=== PATIENT | male | born 1985 | race Caucasian/White ===

== ENCOUNTER 2017-06-03 21:33 | Emergency (ER) | payer SELFPAY ==
[~2017-06-03] VITALS: Ht 180.3 cm; Wt 95.9 kg
[~2017-06-03 21:33] MED LIST: BACTRIM DS1 TAB OR; CIPRO500 MG OR; LEVAQUIN500 MG OR; LORTAB 5 OR; NAPROSYN500 MG OR; NO HOME MEDS; NO MEDS; TYLENOL500 MG OR; ULTRAM50 MG OR
[2017-06-03 21:48] VITALS: BP 118/73
== END 2017-06-03 21:44 | disposition left against medical advice (07) | DRG 951 ==
LOC: ED 21:33 → LWOBS 21:44
DX: Z91.19 Patient's noncompliance with other medical treatment and regimen (principal)

== ENCOUNTER 2018-07-20 17:01 | Emergency (ER) | payer SELFPAY ==
[~2018-07-20] VITALS: Ht 180.3 cm; Wt 110.0 kg
[2018-07-20] MEDS ORDERED: KEFLEX500 M1 PO (17:49)
[2018-07-20] MEDS ORDERED: TORADOL PO (17:49)
[2018-07-20] MEDS ORDERED: PERCOCET1 TA2 PO (17:49)
[2018-07-20 17:54] VITALS: BP 130/77
== END 2018-07-20 17:55 | disposition home or self-care (01) | DRG 605 ==
LOC: ED 17:01
PROC: 0HQBXZZ Repair Right Upper Arm Skin, External Approach (ICD-10-PCS; principal; 2018-07-20)
DX: S41.111A Laceration without foreign body of right upper arm, initial encounter (principal); F17.200 Nicotine dependence, unspecified, uncomplicated; W01.118A Fall on same level from slipping, tripping and stumbling with subsequent striking against other sharp object, initial encounter; Y92.009 Unspecified place in unspecified non-institutional (private) residence as the place of occurrence of the external cause